=== PATIENT | female | born 1945 | race Hispanic/Latino ===

== ENCOUNTER 2017-02-02 09:44 | Day surgery (SDC) | payer MEDICARE, OTHER ==
[2016-04-27 10:21] VITALS: BMI 22.3
[2017-02-02] MEDS ORDERED: Propofol 10 mg/ml Inj (20 ML) ONE (11:29)
[2017-02-02] MEDS ORDERED: ePHEDrine 50 mg/ml Inj ONE (12:15)
[2017-02-02] MEDS ORDERED: Sodium Chloride 0.9% 1,000 ML IV SCH (12:45)
[2017-02-02 12:54] VITALS: O2SAT 97
[2017-02-02 13:11] VITALS: RESP 16
[2017-02-02 13:31] VITALS: BP 97/61; PULSE 60; TEMP 97.6
== END 2017-02-02 14:15 | disposition home or self-care (01) ==
LOC: ENDO 09:44
PROVIDERS: ATTEND Internal Medicine Gastroenterology
DX: D12.5 Benign neoplasm of sigmoid colon (principal); K57.30 Diverticulosis of large intestine without perforation or abscess without bleeding; K64.9 Unspecified hemorrhoids; K31.7 Polyp of stomach and duodenum; K44.9 Diaphragmatic hernia without obstruction or gangrene; K29.50 Unspecified chronic gastritis without bleeding; D50.9 Iron deficiency anemia, unspecified
CPT/HCPCS: 43239; 45381; 45385; 88305; 88342; J2704; J3010; J7040 ×2

== ENCOUNTER 2017-03-30 13:00 | Emergency (ER) | payer MEDICARE, OTHER ==
[2017-03-30 13:01] VITALS: BMI 22.3
[2017-03-30] MEDS ORDERED: Sodium Chloride 0.9% 1,000 ML IV STA (13:20)
[2017-03-30 13:22] VITALS: TEMP 97.6
[2017-03-30 13:27] LABS: BASO # 0.02 K/mm3 (0.0-2.0); BASO % 0.5 % (0.0-3.0); EOS # 0.1 (0.0-0.7); EOS % 1.8 % (1.5-5.0); GRAN # 2.7 (1.4-6.5); GRAN % 62.3 % (50.0-68.0); HEMATOCRIT 34.8 % (36.0-48.0); LYMPH # 1.1 (1.2-3.4); MEAN CELL VOLUME 81.7 fl (80.0-105.0); MEAN CORPUSCULAR HEMOGLOBIN 26.5 pg (25.0-35.0); MEAN CORPUSCULAR HGB CONC 32.5 g/dl (31.0-37.0); MEAN PLATELET VOLUME 8.2 fl (7.0-11.0); MONO # 0.4 (0.1-0.6); MONO % 9.4 % (1.0-6.0); RED CELL DISTRIBUTION WIDTH 13.9 % (11.5-14.5); WHITE BLOOD COUNT 4.3 10^3/ul (4.5-11.0)
[2017-03-30 13:35] LABS: ALB/GLOB RATIO 1.7 (1.1-1.8); ALKALINE PHOSPHATASE 34 U/L (38-126); ALT/SGPT 37 U/L (7-56); AST/SGOT 31 U/L (14-36); BILIRUBIN,TOTAL 0.3 mg/dL (0.2-1.3); BLOOD UREA NITROGEN 23 mg/dL (7-21); CALCIUM 8.7 mg/dL (8.4-10.5); CARBON DIOXIDE 30 mmol/L (21-33); CHLORIDE 105 mmol/L (98-107); GFR AFRICAN-AMERICAN > 60; GLUCOSE,RANDOM 110 mg/dL (70-110); LIPASE 61 U/L (23-300); POTASSIUM 3.5 mmol/L (3.6-5.0); SODIUM 141 mmol/L (132-148); TOTAL PROTEIN 5.9 g/dL (5.8-8.3)
[2017-03-30 13:39] LABS: INR 1.09 (0.93-1.08); PARTIAL THROMBOPLASTIN TIME 24.3 Seconds (23.7-30.8)
[2017-03-30] MEDS ORDERED: Iohexol 240 (50 ml) ONE (13:40)
[2017-03-30 13:47] LABS: TROPONIN I < 0.01 ng/mL
--- NOTE | 2017-03-30 14:05 | ED PDOC ---
Arrival/HPI - General Chief Complaint: Abdominal Pain Time Seen by Provider: 03/30/17 13:14 Historian: Patient - History of Present Illness Narrative History of Present Illness (Text): 03/30/17 13:34 A 71 year old female, whose past medical history includes gastric mass/polyp, presents to the emergency department complaining of upper abdominal pain after a GI procedure. Pain is burning and achy in nature. Patient denies of any fever , nausea, vomiting, diarrhea, shortness of breath, or any other complaints. Case was discussed with Dr. Finnegan who states that she had endoscopy procedure done where polyps were removed. There were no complications but he wanted to make sure she was ok since after Dilaudid she wasn't feeling completely better. PMD: Dr. Norton GI: Dr. Finnegan Time/Duration: Prior to Arrival Symptom Onset: Sudden Symptom Course: Unchanged Past Medical History - Provider Review Nursing Documentation Reviewed: Yes - Infectious Disease Hx of Infectious Diseases: None - Tetanus Immunization Tetanus Immunization: Unknown - Reproductive Menopause: Yes - Cardiac Hx Pacemaker: No - Pulmonary Hx Respiratory Disorders: No - Neurological Hx Paralysis: No - HEENT Hx HEENT Disorder: Yes (eyeglasses) - Renal Hx Kidney Stones: Yes (sx 2014, lithotripsy) - Hematological/Oncological Hx Blood Transfusions: No Hx Blood Transfusion Reaction: No - Integumentary Other/Comment: small .5cm round red scab to left of left eye, post op abd dressing and steri strip to left of surgical incision dry and intact - Musculoskeletal/Rheumatological Hx Musculoskeletal Disorders: Yes (chronic b/l leg and spine pain) - Gastrointestinal Hx Gastrointestinal Disorders: Yes (gastric mass/polyp) - Psychiatric Hx Emotional Abuse: No Hx Physical Abuse: No Hx Substance Use: No - Surgical History Hx Cardiac Catheterization: Yes (09/27/14) Other/Comment: 06/08/16 diagnostic laparotomy, gastrotomy, excision gastric polyp, liver bx, left foot bunionectomy 10/08/14 - Anesthesia Hx Anesthesia Reactions: No Hx Malignant Hyperthermia: No - Suicidal Assessment Feels Threatened In Home Enviroment: No Family/Social History - Physician Review Nursing Documentation Reviewed: Yes Family/Social History: No Known Family HX Smoking Status: Never Smoked Hx Alcohol Use: No Hx Substance Use: No Hx Substance Use Treatment: No Allergies/Home Meds Allergies/Adverse Reactions: Allergies No Known Allergies Allergy (Verified 01/25/17 14:07) Home Medications: Home Meds Medication Instructions Recorded Confirmed Sertraline [Zoloft] 100 mg PO DAILY 04/27/16 03/30/17 Lisinopril/Hydrochlorothiazide 1 tab PO DAILY 02/01/17 03/30/17 [Lisinopril-Hydrochlorothiazide 25 mg-20 mg] Oxycodone HCl/Acetaminophen 1 tab PO TID PRN 02/01/17 03/30/17 [Percocet 10-325 mg Tablet] Metoprolol Tartrate [Lopressor] 25 mg PO DAILY 03/25/17 03/30/17 Review of Systems - Physician Review All systems were reviewed & negative as marked: Yes - Review of Systems Constitutional: absent: Fevers Respiratory: absent: SOB Gastrointestinal: Abdominal Pain (upper abdominal pain). absent: Diarrhea, Nausea, Vomiting Physical Exam Vital Signs Reviewed: Yes Vital Signs Temp Pulse Resp BP Pulse Ox 03/30/17 15:55 54 L 16 145/85 100 03/30/17 13:10 97.6 F 03/30/17 13:06 50 L 16 108/66 94 L Temperature: Afebrile Blood Pressure: Normal Pulse: Bradycardic Respiratory Rate: Normal Appearance: Positive for: Well-Appearing Pain Distress: None Mental Status: Positive for: Alert and Oriented X 3 - Systems Exam Head: Present: Atraumatic, Normocephalic Pupils: Present: PERRL Extroacular Muscles: Present: EOMI Conjunctiva: Present: Normal Mouth: Present: Moist Mucous Membranes Neck: Present: Normal Range of Motion Respiratory/Chest: Present: Clear to Auscultation Cardiovascular: Present: Bradycardic Abdomen: Present: Tenderness (upper abdomen). No: Rebound, Guarding Back: Present: Normal Inspection Upper Extremity: Present: Normal Inspection. No: Cyanosis, Edema Lower Extremity: Present: Normal Inspection. No: Edema Neurological: Present: GCS=15, CN II-XII Intact, Speech Normal Skin: Present: Warm, Dry, Normal Color. No: Rashes Psychiatric: Present: Alert, Oriented x 3, Normal Insight, Normal Concentration Medical Decision Making ED Course and Treatment: 03/30/17 13:40 Impression: 71 year old female with upper abdominal pain. Physical exam shows heart rate is bradycardic; upper abdomen tenderness with no guarding and no rebound; lungs clear; blood pressure normal. Differential Diagnosis included but are not limited to: Perforation after GI procedure Plan: -- EKG -- Abd/pelvis CT -- Labs -- Pepcid -- IV Fluids -- Reassess and disposition Progress Notes: EKG: Ordered, reviewed, and independently interpreted the EKG. Rate : 50 BPM Rhythm : Sinus bradycardia Interpretation : No ST-segment elevations or depressions, no T-wave inversions, normal intervals. Comparison : Similar to EKG of 04/27/2016. 03/30/17 17:51 On reevaluation, patient no longer has abdominal pain. She has a mild headache and is hungry. Abdomen is soft and not tender. Tolerating PO fluids. I discussed the CT results with Dr. Finnegan who is aware of findings and states patient should be discharged home with Nexium 40mg daily and to follow up with him as scheduled. She should start a liquid only diet today and then her regular diet regiment tomorrow. Advised to return to the ED if symptoms worsen or any other concern. - Lab Interpretations Lab Results: 03/30/17 13:22 03/30/17 13:22 Lab Results 03/30/17 13:40: Blood Type A POSITIVE, Antibody Screen Negative, BBK History Checked Patient has bt 03/30/17 13:22: Sodium 141, Potassium 3.5 L, Chloride 105, Carbon Dioxide 30, Anion Gap 10, BUN 23 H, Creatinine 0.6, Est GFR ( Amer) > 60, Est GFR ( Non-Af Amer) > 60, Random Glucose 110, Calcium 8.7, Total Bilirubin 0.3, AST 31 , ALT 37, Alkaline Phosphatase 34 L, Lactate Dehydrogenase 428, Total Creatine Kinase 67, Troponin I < 0.01, Total Protein 5.9, Albumin 3.7, Globulin 2.2, Albumin/Globulin Ratio 1.7, Lipase 61 03/30/17 13:22: PT 11.8, INR 1.09 H, APTT 24.3 03/30/17 13:22: WBC 4.3 L, RBC 4.26, Hgb 11.3 L, Hct 34.8 L, MCV 81.7, MCH 26.5 , MCHC 32.5, RDW 13.9, Plt Count 136, MPV 8.2, Gran % 62.3, Lymph % (Auto) 26.0 , [place] % (Auto) 9.4 H, Eos % (Auto) 1.8, Baso % (Auto) 0.5, Gran # 2.70, Lymph # 1.1 L, [place] # 0.4, Eos # 0.1, Baso # 0.02 I have reviewed the lab results: Yes - RAD Interpretation Radiology Orders: 03/30/17 13:20 ABD & PELVIS PO CONTRAST ONLY [CT] Stat - Medication Orders Current Medication Orders: Sodium Chloride (Sodium Chloride 0.9%) 1,000 mls @ 100 mls/hr IV .Q10H STA Stop: 03/30/17 23:19 Last Admin: 03/30/17 13:33 Dose: 100 mls/hr Discontinued Medications Acetaminophen (Tylenol 325mg Tab) 650 mg PO STAT STA Stop: 03/30/17 17:46 Famotidine (Pepcid) 20 mg IVP STAT STA Stop: 03/30/17 13:21 Last Admin: 03/30/17 13:33 Dose: 20 mg Iohexol (Omnipaque 240 (50 Ml)) Confirm Administered Dose 50 ml .ROUTE .STK-MED ONE Stop: 03/30/17 13:41 Potassium Chloride (K-Dur 20 Meq Er Tab) 40 meq PO STAT STA Stop: 03/30/17 14:18 Last Admin: 03/30/17 14:51 Dose: 40 meq - Scribe Statement The provider has reviewed the documentation as recorded by the Carolyne Mazariegos Provider Scribe Attestation: All medical record entries made by the Carolyne were at my direction and personally dictated by me. I have reviewed the chart and agree that the record accurately reflects my personal performance of the history, physical exam, medical decision making, and the department course for this patient. I have also personally directed, reviewed, and agree with the discharge instructions and disposition. Disposition/Present on Arrival - Present on Arrival Any Indicators Present on Arrival: No History of DVT/PE: No History of Uncontrolled Diabetes: No Urinary Catheter: No History of Decub. Ulcer: No History Surgical Site Infection Following: None - Disposition Have Diagnosis and Disposition been Completed?: Yes Diagnosis: Abdominal pain Disposition: HOME/ ROUTINE Disposition Time: 17:52 Patient Plan: Discharge Patient Problems: Current Active Problems Problem Status Onset Abdominal pain Acute Condition: IMPROVED Discharge Instructions (ExitCare): Acute Abdominal Pain (ED) Additional Instructions: Ms Crowe, thank you for letting us take care of you today. Your provider was Dr. Conti. You were treated for Abdominal Pain. The emergency medical care you received today was directed at your acute symptoms. If you were prescribed any medication, please fill it and take as directed. It may take several days for your symptoms to resolve. Return to the Emergency Department if your symptoms worsen, do not improve, or if you have any other problems. Please contact your doctor or call one of the physicians/clinics you have been referred to that are listed on the Patient Visit Information form that is included in your discharge packet. Bring any paperwork you were given at discharge with you along with any medications you are taking to your follow up visit. Our treatment cannot replace ongoing medical care by a primary care provider (PCP) outside of the emergency department. Thank you for allowing the [facility] team to be part of your care today. If you had an X-Ray or CT scan: A Radiologist will review the ED reading if any change in treatment is needed we will contact you. If you had a blood, urine, or wound culture: It will take several days for the results, if any change in treatment is needed we will contact you. If you had an STI test: It will take 48 hours for the results. Please call after 1 week if you have not heard back. Prescriptions: Esomeprazole Magnesium [Nexium] 40 mg PO DAILY #30 ecc Referrals: Yoly Finnegan MD [Medical Doctor] - Follow up with primary Forms: [employer] (Algerian)
[2017-03-30] MEDS ORDERED: Sodium Chloride 0.9% 500 ML IV STA (14:17)
[2017-03-30] MEDS ORDERED: Potassium Chloride 20 mEq ER Tab PO STA (14:17)
--- NOTE | 2017-03-30 17:24 | CT ---
PROCEDURE: CT Abdomen and Pelvis with contrast HISTORY: Abdominal pain status post unspecified GI procedure. Assess for perforation COMPARISON: 07/17/2016. TECHNIQUE: Oral contrast only. Radiation dose: Total exam DLP = 376.70 mGy-cm. This CT exam was performed using one or more of the following dose reduction techniques: Automated exposure control, adjustment of the mA and/or kV according to patient size, and/or use of iterative reconstruction technique. FINDINGS: LOWER THORAX: Unremarkable. LIVER: Low-attenuation lesion in the right hepatic lobe better visualized on the prior contrast-enhanced CT scan measuring 1.3 cm. GALLBLADDER AND BILE DUCTS: Unremarkable. PANCREAS: Unremarkable. No gross lesion or ductal dilatation. SPLEEN: Unremarkable. ADRENALS: Unremarkable. No mass. KIDNEYS AND URETERS: Unremarkable. No hydronephrosis. No solid mass. VASCULATURE: Unremarkable. No aortic aneurysm. BOWEL: Diffuse thickening of the wall of the stomach primarily involving the distal aspect with sparing of the fundus and without duodenal bulb. This finding likely represents an infiltrative, inflammatory process perhaps gastritis and less likely tumor. There is no evidence of perforation the stomach and the remainder of the colon and small bowel with the exception of diverticulosis are distention. APPENDIX: Normal appendix. PERITONEUM: No evidence of free air, free fluid, drainable collection. LYMPH NODES: Unremarkable. No enlarged lymph nodes. BLADDER: Unremarkable. REPRODUCTIVE: The uterus is surgically absent. BONES: Stable grade 1 anterolisthesis L5-S1. OTHER FINDINGS: None. IMPRESSION: Diffuse thickening of the wall of the body and antrum of stomach. Differential considerations range from severe acute gastritis to infiltrative neoplastic process ease. No evidence of free air, loculated air or drainable collection. Additional benign and/or incidental findings described above.
[2017-03-30 19:03] VITALS: BP 137/76; PULSE 55; RESP 18; O2SAT 98
--- NOTE | 2017-03-31 10:17 | CARD ---
APPROVED REPORT EKG Measurement Heart [id number] <Conclusion> Sinus bradycardia Nonspecific T wave abnormality
== END 2017-03-30 18:21 | disposition home or self-care (01) ==
LOC: ED 13:00
DX: R10.9 Unspecified abdominal pain (principal)
CPT/HCPCS: 74176; 80053; 82550; 83615; 83690; 84484; 85025; 85610; 85730; 86850; 86900; 93005; 96374; 99284; J7040; Q9966

== ENCOUNTER → 2017-03-30 | Day surgery (SDC) | payer MEDICARE, OTHER ==
[2017-03-25 09:06] VITALS: BMI 23.1
[~2017-03-30] MED LIST: Etomidate 20 mg/10ml Inj IV ONE; HYDROmorphone 0.5 mg/0.5 ml ISec IVP PRN; HYDROmorphone 0.5 mg/0.5 ml ISec ONE; Methylene Blue 10 mg/mL(10ml) IV ONE; Propofol 10 mg/ml Inj (20 ML) ONE; Sodium Chloride 0.9% 1,000 ML IV SCH
[2017-03-30 11:03] VITALS: TEMP 97.9
[2017-03-30 13:13] VITALS: BP 106/68
[2017-03-30 13:14] VITALS: PULSE 47; RESP 19; O2SAT 92
== END | disposition home or self-care (01) ==
LOC: ENDO 07:36
PROVIDERS: ATTEND Internal Medicine Gastroenterology
DX: K31.7 Polyp of stomach and duodenum (principal); K44.9 Diaphragmatic hernia without obstruction or gangrene; I10 Essential (primary) hypertension
CPT/HCPCS: 45381; 45385; 88305; 88342; J1170; J2405; J2704; J3010; J7040

== ENCOUNTER 2018-10-31 09:29 | Outpatient (CLI) | payer MEDICARE, OTHER | END 2018-10-31 09:30 | disposition home or self-care (01) | LOC: LAB 09:29 ==